=== PATIENT | male | born 1940 | race Caucasian/White ===

== ENCOUNTER 2020-02-07 17:55 | Inpatient (IN) ==
[2020-02-07 19:04] LABS: Immature Granulocytes % 0.3 % (0-4); Immature Platelets 12.2 % (1.1-6.1)
[2020-02-07 19:05] LABS: INR 1.1; Prothrombin Time 12.4 Seconds (9.4-12.1)
[2020-02-07 19:07] LABS: Activated Partial Thrombo Time 26.6 Seconds (26.0-36.0)
[2020-02-07 19:08] LABS: Basophils % 0.4 %; Eosinophils # 0.1 K/mcL (0.0-0.6); Eosinophils % 1.3 %; Hemoglobin 15.9 g/dL (12.9-16.9); Lymphocytes % 29.5 %; Mean Corpuscular HGB Conc 34.6 g/dL (31.6-35.5); Mean Corpuscular Hemoglobin 30.3 pg (28.0-33.3); Mean Corpuscular Volume 87.6 fL (83.0-100.0); Mean Platelet Volume 12.6 fL (9.4-12.4); Monocytes # 0.7 K/mcL (0.0-1.3); Neutrophils # 3.9 K/mcL (1.6-8.9); Platelet Count 100 K/mcL (140-400); Red Blood Count 5.25 M/mcL (4.19-5.50); Red Cell Distribution Width 12.2 % (11.5-14.5); Segmented Neutrophils % 58.5 %; White Blood Count 6.7 K/mcL (4.3-11.1)
[2020-02-07 19:27] LABS: BUN/Creatinine Ratio 14 (6-26); Blood Urea Nitrogen 14 mg/dL (8-23); Calcium 8.8 mg/dL (8.6-10.3); Carbon Dioxide 27 mEq/L (23-29); Chloride 102 mEq/L (98-107); Glucose 293 mg/dL (70-105); Osmolality,Calculated 295 (280-300); Potassium 3.4 mEq/L (3.5-5.1); Sodium 137 mEq/L (136-145); Troponin I 0.05 ng/mL (< 0.04); eGFR For African Americans > 60 (> 60); eGFR For Non-African Americans > 60 (> 60)
[2020-02-07 19:28] LABS: Platelet Estimate Slight Decrease (Normal)
[2020-02-07] MEDS ORDERED: Aspirin 81 MG TAB.CHEW PO STA (19:44)
[2020-02-07] MEDS ORDERED: *HR* Heparin 5,000 UNIT/ML VIAL IVP PRN ×2 (19:56)
[2020-02-07] MEDS ORDERED: *HR* Heparin 5,000 UNIT/ML VIAL IVP ONE (19:56)
[2020-02-07] MEDS ORDERED: Naloxone 0.4 MG/ML INJ IVP PRN (20:06)
[2020-02-07] MEDS ORDERED: Acetaminophen 325 MG TABLET PO PRN (20:20)
[2020-02-07] MEDS ORDERED: *HR* Labetalol 20 MG/4 ML SYRINGE IVP ONE (20:36)
[2020-02-07] MEDS ORDERED: Dextrose Gel 15 GM/37.5 ML TUBE PO PRN ×2 (20:55)
[2020-02-07] MEDS ORDERED: *HR* Dextrose 50 % in Water (Vial) 50 ML VIAL IVP PRN (20:55)
[2020-02-07] MEDS ORDERED: D5% in Water 1,000 ML IVC PRN (20:55)
[2020-02-07] MEDS: Heparin 25,000UNIT/250ML 1/2NS 25,000 UNIT/250 ML IV.SOLN IVC SCH (20:57)
[2020-02-07 21:32] LABS: Heparin anti-factor XA UFH < 0.04 IU/mL (0.30-0.70); INR 1.1; Prothrombin Time 12.6 Seconds (9.4-12.1)
[2020-02-07] MEDS ORDERED: Ipratropium/Albuterol Neb 3 ML IH PRN (21:52)
[2020-02-07] MEDS ORDERED: Azithromycin 500 MG in 0.9 % Sodium Chloride 250 ML IVPB ONE (21:52)
[2020-02-07] MEDS: Metoprolol 100 MG TABLET PO SCH (22:18)
[2020-02-07] MEDS: Azithromycin 500 MG in 0.9 % Sodium Chloride 250 ML IVPB SCH (22:18)
[2020-02-07] MEDS: Insulin LISPRO 300 UNITS/3 ML VIAL SUBQ SCH (23:22)
[2020-02-07] MEDS: MethylPREDNISolone 40 MG/ML VIAL IVP SCH (23:28)
[2020-02-07] MEDS: Ipratropium/Albuterol Neb 3 ML IH SCH (23:45)
[2020-02-08 03:01] LABS: Basophils % 0.7 %; Eosinophils % 0.5 %; Hemoglobin 15.6 g/dL (12.9-16.9); Immature Granulocytes % 0.4 % (0-4); Lymphocytes # 1.1 K/mcL (0.6-4.6); Lymphocytes % 19.5 %; Mean Corpuscular HGB Conc 34.7 g/dL (31.6-35.5); Mean Corpuscular Hemoglobin 30.4 pg (28.0-33.3); Mean Corpuscular Volume 87.7 fL (83.0-100.0); Mean Platelet Volume 12.4 fL (9.4-12.4); Monocytes # 0.2 K/mcL (0.0-1.3); Monocytes % 3.2 %; Neutrophils # 4.2 K/mcL (1.6-8.9); Platelet Count 100 K/mcL (140-400); Red Blood Count 5.13 M/mcL (4.19-5.50); Segmented Neutrophils % 75.7 %; White Blood Count 5.6 K/mcL (4.3-11.1)
[2020-02-08 03:02] LABS: Heparin anti-factor XA UFH 0.74 IU/mL (0.30-0.70)
[2020-02-08 03:03] LABS: INR 1.1; Prothrombin Time 12.9 Seconds (9.4-12.1)
[2020-02-08 03:17] LABS: Alanine Aminotransferase 18 Units/L (7-52); Albumin 3.7 g/dL (3.5-5.7); Albumin/Globulin Ratio 1.4 (1.1-2.2); Alkaline Phosphatase 61 Units/L (34-104); Aspartate Amino Transferase 18 Units/L (13-39); BUN/Creatinine Ratio 15 (6-26); Bilirubin,Total 0.7 mg/dL (0.3-1.0); Blood Urea Nitrogen 15 mg/dL (8-23); Calcium 8.9 mg/dL (8.6-10.3); Carbon Dioxide 25 mEq/L (23-29); Chloride 106 mEq/L (98-107); Chol/HDL Ratio 3.5 (0-4.9); Cholesterol 148 mg/dL (< 200); Globulin 2.6 g/dL (2.4-3.5); Glucose 236 mg/dL (70-105); HDL Cholesterol 42 mg/dL (40-59); LDL Cholesterol,Calculated 89 mg/dL (< 100); Magnesium 1.9 mg/dL (1.6-2.6); Osmolality,Calculated 294 (280-300); Phosphorous 1.9 mg/dL (2.7-4.5); Sodium 138 mEq/L (136-145); Total Protein 6.3 g/dL (6.4-8.9); Triglycerides 85 mg/dL (< 150); eGFR For African Americans > 60 (> 60); eGFR For Non-African Americans > 60 (> 60)
[2020-02-08] MEDS: Ipratropium/Albuterol Neb 3 ML IH SCH ×6 (04:00→23:00)
[2020-02-08] MEDS: Insulin LISPRO 300 UNITS/3 ML VIAL SUBQ SCH ×3 (05:47→17:17)
[2020-02-08] MEDS ORDERED: Perflutren Lipid Microsphere 1.3 ML in 0.9 % Sodium Chloride 8.7 ML IVP PRN (09:43)
[2020-02-08] MEDS: Aspirin Enteric Coated 81 MG Tablet PO SCH (10:52)
[2020-02-08] MEDS: Isosorbide MONOnitrate (24 HR) 30 MG TAB.ER.24H PO SCH (10:52)
[2020-02-08] MEDS: Metoprolol 100 MG TABLET PO SCH ×2 (10:53→20:06)
[2020-02-08] MEDS: amLODIPine 5 MG TABLET PO SCH (10:53)
[2020-02-08] MEDS: MethylPREDNISolone 40 MG/ML VIAL IVP SCH ×2 (10:57→16:44)
[2020-02-08] MEDS: (Fluticasone Propionate [Flovent Diskus] 50 MCG) IH SCH (11:01)
[2020-02-08] MEDS: Insulin DETEMIR 100 UNIT/ML X5UNITS SUBQ SCH (20:06)
[2020-02-08] MEDS ORDERED: Insulin DETEMIR 100 UNIT/ML X5UNITS SUBQ SCH (21:00)
[2020-02-08] MEDS ORDERED: *HR* Metoprolol 5 MG/5 ML VIAL IVP ONE ×2 (21:20→21:24)
[2020-02-08] MEDS ORDERED: Morphine Sulfate 2 MG/ML SYRINGE IVP ONE ×2 (21:21→21:43)
[2020-02-08] MEDS ORDERED: Nitroglycerin 0.4 MG TAB.SUBL SL ONE (21:24)
[2020-02-08] MEDS: Nitroglycerin 0.4 MG TAB.SUBL SL PRN ×2 (21:28→21:35)
[2020-02-08] MEDS ORDERED: Aspirin 81 MG TAB.CHEW PO STA (21:34)
[2020-02-08] MEDS: Azithromycin 500 MG in 0.9 % Sodium Chloride 250 ML IVPB SCH (22:13)
[2020-02-08 22:17] LABS: BUN/Creatinine Ratio 23 (6-26); Blood Urea Nitrogen 31 mg/dL (8-23); Calcium 9.9 mg/dL (8.6-10.3); Carbon Dioxide 19 mEq/L (23-29); Chloride 102 mEq/L (98-107); Glucose 341 mg/dL (70-105); Osmolality,Calculated 306 (280-300); Potassium 3.8 mEq/L (3.5-5.1); Sodium 138 mEq/L (136-145); eGFR For African Americans > 60 (> 60); eGFR For Non-African Americans 52 (> 60)
[2020-02-08] MEDS ORDERED: *HR* Magnesium Sulfate 2 GM/50 ML PIGGYBACK IVPB ONE (23:54)
[2020-02-09] MEDS ORDERED: Melatonin 3 MG TABLET PO PRN (00:18)
[2020-02-09] MEDS ORDERED: ALPRAZolam 0.5 MG TABLET PO ONE (00:20)
[2020-02-09] MEDS ORDERED: Haloperidol Lactate 5 MG/ML VIAL IVP ONE (00:53)
[2020-02-09] MEDS: MethylPREDNISolone 40 MG/ML VIAL IVP SCH ×3 (01:26→17:31)
[2020-02-09] MEDS: Insulin LISPRO 300 UNITS/3 ML VIAL SUBQ SCH ×4 (01:27→17:31)
[2020-02-09] MEDS: Ipratropium/Albuterol Neb 3 ML IH SCH ×6 (03:44→23:38)
[2020-02-09 06:16] LABS: Hematocrit 43.6 % (37.5-50.1); Hemoglobin 14.6 g/dL (12.9-16.9); Mean Corpuscular HGB Conc 33.5 g/dL (31.6-35.5); Mean Corpuscular Hemoglobin 29.6 pg (28.0-33.3); Mean Corpuscular Volume 88.4 fL (83.0-100.0); Mean Platelet Volume 12.7 fL (9.4-12.4); Platelet Count 121 K/mcL (140-400); Red Blood Count 4.93 M/mcL (4.19-5.50); Red Cell Distribution Width 12.8 % (11.5-14.5)
[2020-02-09 06:17] LABS: White Blood Count 9.8 K/mcL (4.3-11.1)
[2020-02-09 06:36] LABS: BUN/Creatinine Ratio 29 (6-26); Blood Urea Nitrogen 34 mg/dL (8-23); Calcium 9.6 mg/dL (8.6-10.3); Carbon Dioxide 26 mEq/L (23-29); Chloride 106 mEq/L (98-107); Glucose 171 mg/dL (70-105); Osmolality,Calculated 298 (280-300); Potassium 4.4 mEq/L (3.5-5.1); Sodium 138 mEq/L (136-145); eGFR For African Americans > 60 (> 60); eGFR For Non-African Americans 60 (> 60)
[2020-02-09] MEDS: Aspirin Enteric Coated 81 MG Tablet PO SCH (08:20)
[2020-02-09] MEDS: Metoprolol 100 MG TABLET PO SCH ×2 (08:20→19:59)
[2020-02-09] MEDS ORDERED: Potassium Phosphate 44 MEQ in 0.9 % Sodium Chloride 250 ML IVPB ONE (08:23)
[2020-02-09] MEDS: amLODIPine 5 MG TABLET PO SCH (08:24)
[2020-02-09] MEDS: Isosorbide MONOnitrate (24 HR) 30 MG TAB.ER.24H PO SCH (08:27)
[2020-02-09 08:58] LABS: Magnesium 2.5 mg/dL (1.6-2.6); Phosphorous 3.6 mg/dL (2.7-4.5); Troponin I 30.89 ng/mL (< 0.04)
[2020-02-09] MEDS ORDERED: Perflutren Lipid Microsphere 1.3 ML in 0.9 % Sodium Chloride 8.7 ML IVP PRN (10:07)
[2020-02-09] MEDS ORDERED: Isosorbide MONOnitrate (24 HR) 30 MG TAB.ER.24H PO ONE (12:00)
[2020-02-09] MEDS: Sacubitril/Valsartan 24/26 MG 1 TABLET PO SCH (18:59)
[2020-02-09] MEDS: Heparin 25,000UNIT/250ML 1/2NS 25,000 UNIT/250 ML IV.SOLN IVC SCH (20:00)
[2020-02-09] MEDS: Insulin DETEMIR 100 UNIT/ML X5UNITS SUBQ SCH (20:08)
[2020-02-09] MEDS: (Fluticasone Propionate [Flovent Diskus] 50 MCG) IH SCH (21:35)
[2020-02-10] MEDS: MethylPREDNISolone 40 MG/ML VIAL IVP SCH ×2 (00:03→08:18)
[2020-02-10] MEDS: Insulin LISPRO 300 UNITS/3 ML VIAL SUBQ SCH ×6 (00:06→18:07)
[2020-02-10] MEDS: Heparin 25,000UNIT/250ML 1/2NS 25,000 UNIT/250 ML IV.SOLN IVC SCH ×2 (00:37→06:37)
[2020-02-10] MEDS: Ipratropium/Albuterol Neb 3 ML IH SCH ×5 (04:06→21:00)
[2020-02-10 05:21] LABS: Basophils % 0.1 %; Hematocrit 44.8 % (37.5-50.1); Hemoglobin 14.5 g/dL (12.9-16.9); Immature Granulocytes % 0.9 % (0-4); Lymphocytes # 0.9 K/mcL (0.6-4.6); Mean Corpuscular HGB Conc 32.4 g/dL (31.6-35.5); Mean Corpuscular Hemoglobin 29.2 pg (28.0-33.3); Mean Corpuscular Volume 90.3 fL (83.0-100.0); Mean Platelet Volume 12.9 fL (9.4-12.4); Monocytes # 0.4 K/mcL (0.0-1.3); Monocytes % 4.5 %; Neutrophils # 7.1 K/mcL (1.6-8.9); Platelet Count 110 K/mcL (140-400); Red Blood Count 4.96 M/mcL (4.19-5.50); Red Cell Distribution Width 12.7 % (11.5-14.5); Segmented Neutrophils % 83.5 %; White Blood Count 8.5 K/mcL (4.3-11.1)
[2020-02-10 05:43] LABS: Alanine Aminotransferase 27 Units/L (7-52); Albumin 3.6 g/dL (3.5-5.7); Albumin/Globulin Ratio 1.5 (1.1-2.2); Alkaline Phosphatase 51 Units/L (34-104); Aspartate Amino Transferase 62 Units/L (13-39); BUN/Creatinine Ratio 34 (6-26); Bilirubin,Total 0.5 mg/dL (0.3-1.0); Blood Urea Nitrogen 35 mg/dL (8-23); Carbon Dioxide 24 mEq/L (23-29); Chloride 105 mEq/L (98-107); Globulin 2.4 g/dL (2.4-3.5); Glucose 266 mg/dL (70-105); Magnesium 2.2 mg/dL (1.6-2.6); Osmolality,Calculated 303 (280-300); Phosphorous 3.6 mg/dL (2.7-4.5); Potassium 4.1 mEq/L (3.5-5.1); Sodium 138 mEq/L (136-145); eGFR For African Americans > 60 (> 60); eGFR For Non-African Americans > 60 (> 60)
[2020-02-10 05:50] LABS: Troponin I 13.52 ng/mL (< 0.04)
[2020-02-10] MEDS: Sacubitril/Valsartan 24/26 MG 1 TABLET PO SCH (08:17)
[2020-02-10] MEDS: Aspirin Enteric Coated 81 MG Tablet PO SCH (08:17)
[2020-02-10] MEDS: amLODIPine 5 MG TABLET PO SCH (08:17)
[2020-02-10] MEDS: Isosorbide MONOnitrate (24 HR) 30 MG TAB.ER.24H PO SCH (08:17)
[2020-02-10] MEDS: Furosemide 20 MG TABLET PO SCH (08:18)
[2020-02-10] MEDS: Metoprolol XL (24 HR) Succ 50 MG TAB.ER.24H PO SCH ×2 (08:18→20:06)
[2020-02-10] MEDS ORDERED: Furosemide 20 MG/2 ML VIAL IVP SCH (09:00)
[2020-02-10 09:14] LABS: Estimated Average Glucose 148 mg/dl; Hemoglobin A1C 6.8 %
[2020-02-10] MEDS: Insulin DETEMIR 100 UNIT/ML X5UNITS SUBQ SCH (20:07)
[2020-02-10] MEDS: Budesonide/Formoterol 160/4.5 1 PUFF INH IH SCH (21:00)
[2020-02-11 02:46] LABS: Basophils % 0.2 %; Hematocrit 45.6 % (37.5-50.1); Hemoglobin 15.3 g/dL (12.9-16.9); Immature Granulocytes % 1.5 % (0-4); Lymphocytes # 1.6 K/mcL (0.6-4.6); Lymphocytes % 13.9 %; Mean Corpuscular HGB Conc 33.6 g/dL (31.6-35.5); Mean Corpuscular Hemoglobin 30.1 pg (28.0-33.3); Mean Corpuscular Volume 89.8 fL (83.0-100.0); Mean Platelet Volume 12.5 fL (9.4-12.4); Monocytes # 1.2 K/mcL (0.0-1.3); Monocytes % 10.6 %; Neutrophils # 8.3 K/mcL (1.6-8.9); Platelet Count 121 K/mcL (140-400); Red Blood Count 5.08 M/mcL (4.19-5.50); Red Cell Distribution Width 12.7 % (11.5-14.5); Segmented Neutrophils % 73.8 %; White Blood Count 11.3 K/mcL (4.3-11.1)
[2020-02-11 02:54] LABS: Alanine Aminotransferase 48 Units/L (7-52); Albumin 3.5 g/dL (3.5-5.7); Albumin/Globulin Ratio 1.5 (1.1-2.2); Alkaline Phosphatase 55 Units/L (34-104); Aspartate Amino Transferase 53 Units/L (13-39); BUN/Creatinine Ratio 31 (6-26); Bilirubin,Total 0.5 mg/dL (0.3-1.0); Blood Urea Nitrogen 31 mg/dL (8-23); Carbon Dioxide 26 mEq/L (23-29); Chloride 107 mEq/L (98-107); Globulin 2.3 g/dL (2.4-3.5); Glucose 204 mg/dL (70-105); Osmolality,Calculated 304 (280-300); Phosphorous 3.5 mg/dL (2.7-4.5); Potassium 3.7 mEq/L (3.5-5.1); Sodium 141 mEq/L (136-145); Total Protein 5.8 g/dL (6.4-8.9); eGFR For African Americans > 60 (> 60); eGFR For Non-African Americans > 60 (> 60)
[2020-02-11] MEDS: Ipratropium/Albuterol Neb 3 ML IH SCH ×2 (03:54→10:05)
[2020-02-11] MEDS: Insulin LISPRO 300 UNITS/3 ML VIAL SUBQ SCH ×4 (07:37→11:12)
[2020-02-11] MEDS: Aspirin Enteric Coated 81 MG Tablet PO SCH (07:38)
[2020-02-11] MEDS: Furosemide 20 MG TABLET PO SCH (07:38)
[2020-02-11] MEDS: Metoprolol XL (24 HR) Succ 50 MG TAB.ER.24H PO SCH (07:39)
[2020-02-11] MEDS: Sacubitril/Valsartan 24/26 MG 1 TABLET PO SCH (07:39)
[2020-02-11] MEDS: amLODIPine 5 MG TABLET PO SCH (07:39)
[2020-02-11] MEDS: Isosorbide MONOnitrate (24 HR) 30 MG TAB.ER.24H PO SCH (07:39)
[2020-02-11] MEDS ORDERED: *HR* Metoprolol 5 MG/5 ML VIAL IVP SCH (07:58)
[2020-02-11] MEDS ORDERED: Metoprolol XL (24 HR) Succ 50 MG TAB.ER.24H PO SCH (09:00)
[2020-02-11] MEDS ORDERED: predniSONE 20 MG TABLET PO SCH (09:00)
[2020-02-11] MEDS ORDERED: Finasteride 5 MG TABLET PO SCH (09:00)
[2020-02-11] MEDS ORDERED: Sacubitril/Valsartan 24/26 MG 1 TABLET PO SCH (09:00)
[2020-02-11] MEDS: Budesonide/Formoterol 160/4.5 1 PUFF INH IH SCH (10:06)
[2020-02-11 11:14] VITALS: BP 153/84
== END 2020-02-11 13:24 | disposition home or self-care (01) | DRG 280 ==
LOC: 3BNU 17:55 → EMEROOARM 17:55 → SUATTDRO 20:53 → 3BNU 22:07 → 2NNU 02-08 23:07
PROVIDERS: ADMIT Internal Medicine; ATTEND Internal Medicine

== ENCOUNTER 2020-03-27 00:31 | Observation (INO) ==
[2020-03-27] MEDS ORDERED: GI Cocktail 40 ML EACH PO ONE (01:21)
[2020-03-27] MEDS ORDERED: *HR* FentaNYL (PF) 100 MCG/2 ML VIAL IVP ONE (01:21)
[2020-03-27] MEDS ORDERED: Aspirin 81 MG TAB.CHEW PO ONE (01:30)
[2020-03-27 01:49] LABS: Basophils # 0.1 K/mcL (0.0-0.2); Basophils % 0.7 %; Eosinophils # 0.2 K/mcL (0.0-0.6); Hematocrit 39.5 % (37.5-50.1); Hemoglobin 13.2 g/dL (12.9-16.9); Immature Granulocytes % 0.4 % (0-4); Lymphocytes # 1.8 K/mcL (0.6-4.6); Lymphocytes % 24.2 %; Mean Corpuscular HGB Conc 33.4 g/dL (31.6-35.5); Mean Corpuscular Hemoglobin 29.7 pg (28.0-33.3); Mean Platelet Volume 12.4 fL (9.4-12.4); Monocytes # 0.8 K/mcL (0.0-1.3); Monocytes % 11.3 %; Neutrophils # 4.5 K/mcL (1.6-8.9); Platelet Count 102 K/mcL (140-400); Red Blood Count 4.44 M/mcL (4.19-5.50); Red Cell Distribution Width 12.7 % (11.5-14.5); Segmented Neutrophils % 61.4 %; White Blood Count 7.4 K/mcL (4.3-11.1)
[2020-03-27 02:17] LABS: BUN/Creatinine Ratio 17 (6-26); Blood Urea Nitrogen 19 mg/dL (8-23); Calcium 8.8 mg/dL (8.6-10.3); Carbon Dioxide 25 mEq/L (23-29); Chloride 103 mEq/L (98-107); Glucose 276 mg/dL (70-105); Osmolality,Calculated 296 (280-300); Potassium 3.4 mEq/L (3.5-5.1); Sodium 137 mEq/L (136-145); Troponin I 0.11 ng/mL (< 0.04); eGFR For African Americans > 60 (> 60); eGFR For Non-African Americans > 60 (> 60)
[2020-03-27] MEDS ORDERED: *HR* Heparin 5,000 UNIT/ML VIAL IVP PRN ×2 (02:26)
[2020-03-27] MEDS ORDERED: *HR* Heparin 5,000 UNIT/ML VIAL IVP ONE (02:26)
[2020-03-27] MEDS: Heparin 25,000UNIT/250ML 1/2NS 25,000 UNIT/250 ML IV.SOLN IVC SCH (03:08)
[2020-03-27] MEDS ORDERED: Ondansetron 4 MG/2 ML VIAL IVP PRN (03:12)
[2020-03-27] MEDS ORDERED: Naloxone 0.4 MG/ML INJ IVP PRN (03:12)
[2020-03-27] MEDS ORDERED: Nitroglycerin 0.4 MG TAB.SUBL SL PRN (03:16)
[2020-03-27 03:21] LABS: Heparin anti-factor XA UFH < 0.04 IU/mL (0.30-0.70); INR 1.1; Prothrombin Time 12.4 Seconds (9.4-12.1)
[2020-03-27] MEDS ORDERED: Dextrose Gel 15 GM/37.5 ML TUBE PO PRN ×2 (05:11)
[2020-03-27] MEDS ORDERED: *HR* Dextrose 50 % in Water (Vial) 50 ML VIAL IVP PRN (05:11)
[2020-03-27] MEDS ORDERED: D5% in Water 1,000 ML IVC PRN (05:11)
[2020-03-27] MEDS ORDERED: Insulin LISPRO 300 UNITS/3 ML VIAL SUBQ SCH (06:00)
[2020-03-27] MEDS ORDERED: Fluticasone Propionate Nasal 50 MCG/SPRAY BOTTLE NS PRN (09:59)
[2020-03-27] MEDS: Metoprolol XL (24 HR) Succ 50 MG TAB.ER.24H PO SCH ×2 (10:13→19:54)
[2020-03-27] MEDS: amLODIPine 5 MG TABLET PO SCH (10:13)
[2020-03-27] MEDS: Furosemide 20 MG TABLET PO SCH (10:14)
[2020-03-27] MEDS: Aspirin Enteric Coated 81 MG Tablet PO SCH (10:14)
[2020-03-27] MEDS: Sacubitril/Valsartan 24/26 MG 1 TABLET PO SCH ×2 (10:14→19:55)
[2020-03-27] MEDS ORDERED: Isosorbide MONOnitrate (24 HR) 30 MG TAB.ER.24H PO SCH (10:15)
[2020-03-27] MEDS ORDERED: Perflutren Lipid Microsphere 1.3 ML in 0.9 % Sodium Chloride 8.7 ML IVP PRN (10:34)
[2020-03-27] MEDS: Budesonide/Formoterol 160/4.5 1 PUFF INH IH SCH ×2 (10:35→20:01)
[2020-03-27] MEDS ORDERED: Isosorbide MONOnitrate (24 HR) 30 MG TAB.ER.24H PO ONE (10:38)
[2020-03-27] MEDS: Insulin LISPRO 300 UNITS/3 ML VIAL SUBQ SCH ×2 (12:38→17:15)
[2020-03-28] MEDS: Heparin 25,000UNIT/250ML 1/2NS 25,000 UNIT/250 ML IV.SOLN IVC SCH ×2 (02:35→08:24)
[2020-03-28 03:26] LABS: Hematocrit 39.2 % (37.5-50.1); Hemoglobin 13.2 g/dL (12.9-16.9); Mean Corpuscular HGB Conc 33.7 g/dL (31.6-35.5); Mean Corpuscular Hemoglobin 30.1 pg (28.0-33.3); Mean Corpuscular Volume 89.5 fL (83.0-100.0); Platelet Count 101 K/mcL (140-400); Red Blood Count 4.38 M/mcL (4.19-5.50); Red Cell Distribution Width 13.1 % (11.5-14.5); White Blood Count 8.9 K/mcL (4.3-11.1)
[2020-03-28 03:48] LABS: BUN/Creatinine Ratio 16 (6-26); Blood Urea Nitrogen 17 mg/dL (8-23); Calcium 8.9 mg/dL (8.6-10.3); Carbon Dioxide 25 mEq/L (23-29); Chloride 105 mEq/L (98-107); Glucose 113 mg/dL (70-105); Osmolality,Calculated 286 (280-300); Potassium 3.8 mEq/L (3.5-5.1); Sodium 137 mEq/L (136-145); eGFR For African Americans > 60 (> 60); eGFR For Non-African Americans > 60 (> 60)
[2020-03-28] MEDS: Budesonide/Formoterol 160/4.5 1 PUFF INH IH SCH ×2 (08:00→19:50)
[2020-03-28] MEDS: Insulin LISPRO 300 UNITS/3 ML VIAL SUBQ SCH ×3 (08:21→17:15)
[2020-03-28] MEDS: Isosorbide MONOnitrate (24 HR) 30 MG TAB.ER.24H PO SCH (08:22)
[2020-03-28] MEDS: Metoprolol XL (24 HR) Succ 50 MG TAB.ER.24H PO SCH ×2 (08:22→22:51)
[2020-03-28] MEDS: Furosemide 20 MG TABLET PO SCH (08:23)
[2020-03-28] MEDS: Finasteride 5 MG TABLET PO SCH (08:23)
[2020-03-28] MEDS: Aspirin Enteric Coated 81 MG Tablet PO SCH (08:23)
[2020-03-28] MEDS: amLODIPine 5 MG TABLET PO SCH (08:23)
[2020-03-28] MEDS: Vitamin B Complex/Vit C/Vit E 1 EACH TABLET PO SCH (08:23)
[2020-03-28] MEDS: Sacubitril/Valsartan 24/26 MG 1 TABLET PO SCH ×2 (08:23→22:51)
[2020-03-28] MEDS: Sulfamethoxazole/Trimeth DS 1 EACH TABLET PO SCH ×2 (15:42→22:51)
[2020-03-28 16:07] LABS: Hematocrit 38.4 % (37.5-50.1); Hemoglobin 12.7 g/dL (12.9-16.9)
[2020-03-29 00:58] LABS: Hematocrit 38.1 % (37.5-50.1); Hemoglobin 12.5 g/dL (12.9-16.9); Mean Corpuscular HGB Conc 32.8 g/dL (31.6-35.5); Mean Corpuscular Hemoglobin 29.7 pg (28.0-33.3); Mean Corpuscular Volume 90.5 fL (83.0-100.0); Mean Platelet Volume 12.4 fL (9.4-12.4); Platelet Count 119 K/mcL (140-400); Red Blood Count 4.21 M/mcL (4.19-5.50); Red Cell Distribution Width 13.2 % (11.5-14.5); White Blood Count 7.3 K/mcL (4.3-11.1)
[2020-03-29 01:16] LABS: BUN/Creatinine Ratio 17 (6-26); Blood Urea Nitrogen 20 mg/dL (8-23); Calcium 8.8 mg/dL (8.6-10.3); Carbon Dioxide 25 mEq/L (23-29); Chloride 104 mEq/L (98-107); Glucose 185 mg/dL (70-105); Osmolality,Calculated 289 (280-300); Potassium 4.2 mEq/L (3.5-5.1); Sodium 136 mEq/L (136-145); eGFR For African Americans > 60 (> 60); eGFR For Non-African Americans 58 (> 60)
[2020-03-29] MEDS: Sulfamethoxazole/Trimeth DS 1 EACH TABLET PO SCH (08:37)
[2020-03-29] MEDS: Metoprolol XL (24 HR) Succ 50 MG TAB.ER.24H PO SCH (08:37)
[2020-03-29] MEDS: Vitamin B Complex/Vit C/Vit E 1 EACH TABLET PO SCH (08:37)
[2020-03-29] MEDS: Sacubitril/Valsartan 24/26 MG 1 TABLET PO SCH (08:37)
[2020-03-29] MEDS: Isosorbide MONOnitrate (24 HR) 30 MG TAB.ER.24H PO SCH (08:37)
[2020-03-29] MEDS: Finasteride 5 MG TABLET PO SCH (08:37)
[2020-03-29] MEDS: amLODIPine 5 MG TABLET PO SCH (08:38)
[2020-03-29] MEDS: Insulin LISPRO 300 UNITS/3 ML VIAL SUBQ SCH ×2 (08:38→11:52)
[2020-03-29] MEDS: Furosemide 20 MG TABLET PO SCH (08:38)
[2020-03-29] MEDS: Budesonide/Formoterol 160/4.5 1 PUFF INH IH SCH (09:18)
[2020-03-29] MEDS ORDERED: Aspirin 81 MG TAB.CHEW PO SCH (10:15)
[2020-03-29 11:16] VITALS: BP 116/66
== END 2020-03-29 14:08 | disposition home or self-care (01) ==
LOC: EMEROOARM 00:31 → 2ANU 00:31 → SUATTDRO 02:46 → 2ANU 03:43
PROVIDERS: ADMIT Family Medicine; ATTEND Internal Medicine